=== PATIENT | female | born 1955 | race Hispanic/Latino ===

== ENCOUNTER 2020-02-28 05:57 | Emergency (ER) | payer MEDICAID | END 2020-02-28 07:09 | disposition home or self-care (01) | LOC: EDH 05:57 | DX: Z43.1 Encounter for attention to gastrostomy (principal); M19.90 Unspecified osteoarthritis, unspecified site; I10 Essential (primary) hypertension; F31.9 Bipolar disorder, unspecified; K21.9 Gastro-esophageal reflux disease without esophagitis | CPT/HCPCS: 43246 ==

== ENCOUNTER 2024-01-05 10:28 | Day surgery (SDC) | payer MEDICARE ==
[2024-01-05] VITALS (10 sets, daily range): BP systolic 91–122; BP diastolic 41–74; PULSE 44–67; RESP 14–20; TEMP 97.1–97.6
[2024-01-05] MEDS ORDERED: 0.9%NACL 1000ML 1,000 ML IV ONE (12:25)
[2024-01-05] MEDS ORDERED: LEVO50CA4 PO (12:32)
[2024-01-05] MEDS ORDERED: CHOL500051 PO (12:32)
[2024-01-05] MEDS ORDERED: CLON0.252 PO (12:32)
[2024-01-05] MEDS ORDERED: VALS40TA11 PO (12:32)
[2024-01-05] MEDS ORDERED: VITA1CAP85 PO (12:32)
[2024-01-05] MEDS ORDERED: proPOFol 10 MG/ML 20ML VIAL IV ONE (12:36)
[2024-01-05] MEDS ORDERED: LIDOCAINE PF 100MG/5ML (2%) SYRINGE 5ML ONE (12:37)
--- NOTE | 2024-01-06 09:30 | EKG ---
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
== END 2024-01-05 14:49 | disposition home or self-care (01) ==
LOC: ENDO 10:28 → DAH 10:39 → ENDO 14:49
PROVIDERS: ATTEND Internal Medicine Gastroenterology
DX: D64.9 Anemia, unspecified (principal); R19.4 Change in bowel habit; K64.0 First degree hemorrhoids; E03.9 Hypothyroidism, unspecified; F25.9 Schizoaffective disorder, unspecified; F31.9 Bipolar disorder, unspecified; I10 Essential (primary) hypertension; I25.10 Atherosclerotic heart disease of native coronary artery without angina pectoris; I25.2 Old myocardial infarction; J45.909 Unspecified asthma, uncomplicated; Z86.711 Personal history of pulmonary embolism; Z86.718 Personal history of other venous thrombosis and embolism; Z79.899 Other long term (current) drug therapy
CPT/HCPCS: 45378; 93005; J7030; J2003; J2704; A4620; A4215 ×2; A4223; A4222; A4221; A4663; A4606; J3490

== ENCOUNTER 2024-03-01 11:19 | Day surgery (SDC) | payer MEDICARE ==
[2024-03-01] VITALS (11 sets, daily range): BP systolic 84–170; BP diastolic 39–83; PULSE 57–70; RESP 14–20; TEMP 97–207.9
[~2024-03-01 11:19] MED LIST: CHOL500051 PO; CLON0.252 PO; LEVO50CA4 PO; VALS40TA11 PO; VITA1CAP85 PO
[2024-03-01] MEDS ORDERED: 0.9%NACL 1000ML 1,000 ML IV ONE (12:38)
[2024-03-01] MEDS ORDERED: LAMO50TA3 PO (12:53)
[2024-03-01] MEDS ORDERED: DSSL PO (12:53)
[2024-03-01] MEDS ORDERED: CALC200T16 PO (12:56)
[2024-03-01] MEDS ORDERED: FERSL PO (12:56)
[2024-03-01] MEDS ORDERED: DENO60DI SQ (12:56)
[2024-03-01] MEDS ORDERED: proPOFol 10 MG/ML 20ML VIAL IV ONE ×2 (14:12→14:21)
[2024-03-01] MEDS ORDERED: dexaMETHasone SOD PHOSPHATE 10MG/ML 1ML VIAL ONE (15:05)
== END 2024-03-01 16:00 | disposition home or self-care (01) ==
LOC: DAH 11:19
PROVIDERS: ATTEND Internal Medicine Gastroenterology
DX: D50.9 Iron deficiency anemia, unspecified (principal); R13.10 Dysphagia, unspecified; K21.00 Gastro-esophageal reflux disease with esophagitis, without bleeding; K29.50 Unspecified chronic gastritis without bleeding; K26.9 Duodenal ulcer, unspecified as acute or chronic, without hemorrhage or perforation; I10 Essential (primary) hypertension; E03.9 Hypothyroidism, unspecified; I34.0 Nonrheumatic mitral (valve) insufficiency; Z79.890 Hormone replacement therapy; Z79.899 Other long term (current) drug therapy; Z98.890 Other specified postprocedural states
CPT/HCPCS: 88305; 88312; 43239; 43246; J1100; J7030; J2704 ×2; A4620; A4215; J3490